=== PATIENT | male | born 1945 | race Caucasian/White ===

== ENCOUNTER → 2023-10-30 11:20 | Outpatient (REF) | payer MEDICARE, OTHER, SELFPAY | LOC: DHCBS MAIN 11:20 | PROVIDERS: ATTENDING PHYSICIAN Internal Medicine Cardiovascular Disease; FAMILY PHYSICIAN Family Medicine | DX: I10 Essential (primary) hypertension (principal) | CPT/HCPCS: 93306 ==

== ENCOUNTER → 2024-12-13 09:27 | Outpatient (REF) | payer MEDICARE, OTHER, SELFPAY | LOC: RCS 09:27 | PROVIDERS: ATTENDING PHYSICIAN Internal Medicine Cardiovascular Disease; FAMILY PHYSICIAN Family Medicine | DX: I49.49 Other premature depolarization (principal); I10 Essential (primary) hypertension | CPT/HCPCS: 93306 ==